=== PATIENT | male | born 2000 | race Caucasian/White ===

== ENCOUNTER 2025-02-15 00:02 | Emergency (ER) | payer OTHER, SELFPAY ==
[2025-02-15 00:45] VITALS: BP 114/76; PULSE 98; RESP 20; TEMP 37.1; O2SAT 97; BMI 28.7
--- NOTE | 2025-02-15 01:59 | PC.NURSE ---
PT HERE W/ C/O R SIDED FACIAL/NASAL PAIN/SWELLING STARTED YESTERDAY. DENIES FEVER/SOA. SKIN INTACT, + REDNESS TO R SIDE OF NOSE
[2025-02-15] MEDS: DOXYCYCLINE HYCL 100 MG TABLET PO (02:39)
[2025-02-15 02:54] VITALS: BP 120/72; PULSE 70; RESP 16; TEMP 37.2; O2SAT 98
--- NOTE | 2025-02-15 02:54 | ED_ITS ---
Discharge Plan Disposition Patient Disposition: Home, Self-Care Condition: Good Prescriptions Prescriptions: New doxycycline hyclate 100 mg capsule 100 mg PO BID 7 Days Qty: 14 0RF valacyclovir 500 mg tablet 500 mg PO BID 3 Days Qty: 6 0RF Referrals Follow up/Referrals: Provider,Referral, [Primary Care Provider] - See instructions Activity Restrictions/Add. Instructions Additional Instructions/Restrictions: Were evaluated in the ER and are appropriate for discharge at this time. Take the prescribed doxycycline and valacyclovir as directed. Drink a full glass of water each time you take these medications. Make an appointment with your primary care doctor for reevaluation in 2 to 3 days. Return to the ER with any new, worsening, or otherwise concerning symptoms. Clinical Impressions Clinical Impression: Rash of genital area, Cellulitis of nose Instructions Patient Instructions: DI for Skin Abscess Print Language Print Language: Haitian Discharge ED Provider: Vladimir Mensah General Adult HPI General Chief complaint: Skin/Abscess/Foreign Body Stated complaint: swelling, pain R side face,dryness,itching groin Time Seen by Provider: 02/15/25 01:38 Mode of Arrival: Ambulatory Source of Information: Patient Description of Symptoms (Recalled from ER Triage Doc. by RN): PT HERE W/ C/O R SIDED FACIAL/NASAL PAIN/SWELLING STARTED YESTERDAY, WORSENING TODAY. History of Present Illness HPI narrative: 24-year-old male with MSM preferences who has a history of anal HSV presents to the ER with complaints of right nasal swelling and pain. Patient states he had a small cut inside the right side of his nose and he is worried it is infected. He states he thinks the right side of his face is swelling. He also states he has had a mild rash on his genital area he states it is slightly red and itchy. He is concerned that his partner is not loyal to him. He does not want prophylactic STD treatment but would like basic testing at this time. He states he does get annual HIV screenings and has always been negative. He has not had fevers, chills, cold or flu-like symptoms, no other associated symptoms. No dysuria, hematuria, abnormal discharge, or other genital concerns. He does report that within the rash he feels 1 small bump that feels like it could be a developing HSV lesion. He states he has taken valacyclovir previously. Related Data Previous Rx's ?Medication ?Instructions ?Recorded doxycycline hyclate 100 mg capsule 100 mg PO BID 7 days #14 caps 02/15/25 valacyclovir 500 mg tablet 500 mg PO BID 3 days #6 tabs 02/15/25 Allergies Allergy/AdvReac Type Severity Reaction Status Date / Time No Known Allergies Allergy Verified 02/15/25 00:48 [facility] Disclaimer: The information contained in this section may have been updated after the patient was seen, as this information can be updated by other users. Medical History (Updated 02/15/25 @ 02:49 by Vladimir Mensah MD) HSV-1 (herpes simplex virus 1) infection Social History Smoking Status: Current every day smoker alcohol intake: never current occupational status: other Travel in the last 8 weeks: None ROS Obtained: Yes Systems reviewed as appropriate & no additional complaints except as documented per HPI Physical Exam General General appearance: alert and in no apparent distress Head Head exam: atraumatic and normocephalic Eye Eye exam: Present PERRL and EOMI; Absent conjunctival redness or conjunctival injection ENT ENT exam: Present mucous membranes moist and other (Very mild swelling of the soft tissues overlying the right maxillary sinus but no redness or tenderness) Expanded ENT Exam Nose exam: Present other (Tenderness just within the right nare with external erythema, slight swelling and induration, no fluctuance or evidence of abscess. No abnormality of the septum.) Neck Neck exam: Present normal inspection and full ROM Chest Chest inspection: Present symmetric chest wall rise Respiratory Respiratory exam: Present normal lung sounds bilaterally; Absent respiratory distress, wheezes or stridor Cardiovascular Cardiovascular exam: Present regular rate and normal rhythm Abdominal Exam Abdominal exam: Present soft; Absent distention or tenderness exam: Present normal inspection, normal testicular lie, circumcised and other (Slight generalized erythema of the skin but no induration, I do not appreciate vesicles or bullae, no chancre, no lymphadenopathy; recycling director present); Absent testicular tenderness, urethral discharge or scrotal swelling Extremities Exam Extremities exam: Present full ROM Neurological Exam Neurological exam: Present alert and oriented X3; Absent motor sensory deficit Psychiatric Psychiatric exam: Present normal affect and normal mood Skin Skin exam: Present warm and dry Medical Decision Making Medical Records Screening: Per USPSTF and CDC recommendations, given the prevalence of disease in our region, it is our hospital?s policy to screen for HIV and viral Hepatitis for all patients aged 18 and over and those with ongoing risk factors. Sky Inquiry Pt receiving controlled substance: No Vital Signs: 02/15/25 00:45 Temperature 98.7 F Temperature Source Oral Pulse Rate [Apical] 98 H Respiratory Rate 20 Blood Pressure [Right Arm] 114/76 Blood Pressure Mean [Right Arm] 88 02 Sat by Pulse Oximetry 97 Oxygen Delivery Method Room Air Orders (Tests/Meds): ED MEDICATIONS Discontinued Medications Generic Name Dose Route Start Last Admin Trade Name Antoine PRN Reason Stop Dose Admin Doxycycline Hyclate 100 mg 02/15/25 02:32 02/15/25 02:39 Doxycycline Hycl 100 Mg Tablet PO 02/15/25 02:33 100 mg ONCE ONE Administration ORDERS Category Date Time Status Chlam/Gono/Trich/Myco, REESE, Ur Stat Lab 02/15/25 02:47 Ordered Medical Decision Narrative: In summary, this 24-year-old male with comorbidities described in the HPI presents to the emergency department today with mild itchy genital rash and pain and redness of the right nare. On initial evaluation patient is hemodynamically stable, afebrile, well-appearing, he has mild erythema of the external aspect of the right nare without significant induration, no associated abscess appreciated, no involvement of the septum, no tenderness over the maxillary sinu s, extraocular movements intact, pain-free, genital exam with very slight erythema of the skin with no induration or lesions, no discharge. Differential diagnosis includes but is not limited to cellulitis, I considered the possibility of abscess but do not appreciate evidence of this and there is already a small wound within the naris that I would expect to drain if there was abscess, I considered the possibility of soft tissue infection extension including sinusitis or preseptal cellulitis but appreciate no evidence of these. Patient has history of negative HIV testing and does not have any concerning signs or symptoms clinically at this time for HIV though I did consider this/immunosuppression given his sexual preferences. I considered other STD including HSV. I also considered eczema, yeast. I do not appreciate evidence of yeast. No overt evidence of HSV active lesions but with his history and concern for 1 slightly painful and raised spot, will treat for HSV with valacyclovir. This was prescribed to him since it is not on formulary at this hospital. Patient received a dose of doxycycline for treatment of the cellulitis of the right naris. Urinary STD testing was ordered. I do not believe he requires further labs or imaging at this time. He is appropriate for discharge and comfortable with this plan. I recommended he continue having routine HIV screenings and follow-up closely with his primary care doctor. He was given instructions on medication use, follow-up instructions, and strict return precautions for the ER. He indicated understanding and the patient was discharged in stable condition. Critical Care Critical Care Time Critical Care Time: No
[2025-02-19 17:10] LABS: Mycoplasma genitalium, NAA Negative (Negative); Neisseria gonorrhoeae, NAA Negative (Negative); Trich vag by NAA Negative (Negative)
== END 2025-02-15 02:57 | disposition home or self-care (01) ==
PROVIDERS: Emergency Provider Emergency Medicine
DX: J34.0 Abscess, furuncle and carbuncle of nose (principal); J34.89 Other specified disorders of nose and nasal sinuses; R22.0 Localized swelling, mass and lump, head; R21 Rash and other nonspecific skin eruption; Z86.19 Personal history of other infectious and parasitic diseases; Z72.0 Tobacco use
CPT/HCPCS: 87491; 87563; 87591; 87661; 99283